=== PATIENT | female | born 1975 | race Caucasian/White ===

== ENCOUNTER 2020-09-12 07:09 | Day surgery (SDC) | payer OTHER ==
[2020-09-12] MEDS ORDERED: KEFZOL 1 GM/50 ML PREMIX** 1 GM/50 ML IVPB IV SCH (07:15)
[2020-09-12] MEDS ORDERED: Lactated Ringers 1,000 ML IV SCH (07:30)
[2020-09-12] MEDS ORDERED: Lactated Ringers 1,000 ML IV ONE ×2 (07:39→09:24)
[2020-09-12] MEDS ORDERED: KEFZOL 1 GM/50 ML PREMIX** 1 GM/50 ML IVPB IV ONE (07:39)
[2020-09-12] MEDS ORDERED: XYLOCAINE 1% HCL 20 ML MDV ONE (08:31)
[2020-09-12] MEDS ORDERED: Versed 2 MG/2 ML Injection ONE (09:14)
[2020-09-12] MEDS ORDERED: SUBLIMAZE 100 MCG/2 ML ONE (09:14)
[2020-09-12] MEDS ORDERED: XYLOCAINE 1%/Epi 1:100000 MDV 20 ML ONE ×2 (09:21→09:25)
[2020-09-12] MEDS ORDERED: DIPRIVAN 200 MG/20 ML IV ONE ×2 (09:22→09:23)
[2020-09-12 10:28] VITALS: O2SAT 96
[2020-09-12 10:51] VITALS: BP 138/88; PULSE 78
--- NOTE | 2020-09-13 11:50 | OP ---
SURGERY DATE/TIME: 09/12/2020 0913 PREOPERATIVE DIAGNOSIS: 1. LEFT UPPER THIGH PERINEAL LESION. POSTOPERATIVE DIAGNOSIS: 1. LEFT UPPER THIGH PERINEAL LESION. PROCEDURE: 1. Excision of left upper thigh perineal lesion. SURGEON: Lemuel Owens DO [employer] TOOL OPERATOR: Katerine certified surgical first assistant. ANESTHESIA: MAC sedation. ESTIMATED BLOOD LOSS: Minimal. COMPLICATIONS: None. FINDINGS: The risks, benefits, indications, and alternatives of the procedure were reviewed with the patient prior to the procedure. The patient understood the risks of infection that can be associated with this procedure. However, desires to have this procedure as it possibly means to alleviate her current medical condition. DESCRIPTION OF PROCEDURE: At this point, the patient was taken to the operating room, given general sedation with MAC sedation. She was prepped and placed in frog leg position under sterile technique. From this point, the lesion which was approximately 3 X 3 cm which was a warty lesion located on the left upper thigh perineal region was elevated and injected with 10 cc of Lidocaine with Epinephrine on its stalk which was approximately 1-2 cm in dimension. After elevating this warty lesion, #15 blade scalpel was used to excise the lesion in its entirety without complication. The excision was repaired with interrupted sutures of 2-0 chromic and was done so without complication. Hemostasis was obtained. The patient was then successfully taken out of the frog leg position and was then taken to the recovery room in stable condition. All instruments and laps were accounted for X 2.
== END 2020-09-12 10:45 | disposition home or self-care (01) ==
LOC: SDC 07:09
PROVIDERS: ATTEND Obstetrics & Gynecology
DX: D22.72 Melanocytic nevi of left lower limb, including hip (principal)
CPT/HCPCS: 84703; J0690; J2250; J2704; J3010